=== PATIENT | male | born 1985 | race Caucasian/White ===

== ENCOUNTER 2017-12-04 08:47 | Emergency (ER) | payer BC ==
[2017-12-04 09:14] VITALS: BP 158/99
--- NOTE | 2017-12-04 09:26 | UC ---
Cardiac HPI - HPI Summary HPI Summary: 2 weeks of coughing, with increase in violent cough 3 days ago. Pain in the left chest since then, increased with deep inspiration. Feeling much worse today , with more severe pain. Took ibuprofen 400mg 1.5 hours ago and is feeling a bit better. Cardiac risk factors: BP trends high at annual checks, never treated. Does not know cholesterol. FH PGF with [place], but still alive at age 91. Non-smoker, moderately active, walks regularly without chest pain or dyspnea. - History of Current Complaint Chief Complaint: UCChestPain Stated Complaint: CHEST PAINS Time Seen by Provider: 12/04/17 09:14 Hx Obtained From: Patient Onset/Duration: Gradual Onset, Lasting Days - 3 Timing: Constant Initial Severity: Moderate Current Severity: Moderate Pain Intensity: 10 Chest Pain Location: Left Lateral Character: Sharp/Stabbing Aggravating Factor(s): Exertion, Deep Breaths Alleviating Factor(s): Rest, Position Associated Signs & Symptoms: Positive: Chest Pain, Diaphoresis - Risk Factors Pulmonary Embolism Risk Factors: Negative Cardiac Risk Factors: Hypertension Atrial Fibrillation: Hypertension TAD Risk Factors: Negative AMI/ACS Risk Factors: Obesity, Hypertension - not diagnosed, not treated. - Allergy/Home Medications Allergies/Adverse Reactions: Allergies Allergy/AdvReac Type Severity Reaction Status Date / Time cefaclor [From [facility]] Allergy Unknown Unknown Verified 12/04/17 09:04 Reaction Details Home Medications: Home Medications Ibuprofen TAB* [Advil TAB*] 200 mg PO Q6H PRN 12/04/17 [History Confirmed ] PMH/Surg Hx/FS Hx/Imm Hx Previously Healthy: Yes - Overweight Respiratory History: Pneumonia - age 11, with need for chest tube due to pneumothorax. No particular lung issues since then. - Surgical History Surgical History: None - Family History Known Family History: Positive: Cardiac Disease - PGF, living, 90 - Social History Occupation: Employed Full-time - events associate at [employer] Lives: With Family Alcohol Use: Weekly Substance Use Type: None Smoking Status (MU): Never Smoked Tobacco Review of Systems Constitutional: Negative Skin: Negative Eyes: Negative ENT: Negative Respiratory: Shortness Of Breath, Cough Cardiovascular: Chest Pain, Other - BP elevated at MD visits, but has never been on meds nor asked to follow up with repeat readings. Gastrointestinal: Negative Genitourinary: Negative Motor: Negative Neurovascular: Negative Musculoskeletal: Negative Neurological: Negative Psychological: Negative Is Patient Immunocompromised?: No All Other Systems Reviewed And Are Negative: Yes Physical Exam Triage Information Reviewed: Yes Appearance: Ill-Appearing - looks mildly unwell, Pain Distress - at the time of my assessment, appears comfortable, pink, speaks easily. Vital Signs: Initial Vital Signs Temp 98.3 F 12/04/17 09:05 Pulse 115 12/04/17 09:05 Resp 28 12/04/17 09:05 BP 158/99 12/04/17 09:05 Pulse Ox 99 12/04/17 09:05 Vital Signs Reviewed: Yes Eyes: Positive: Conjunctiva Clear ENT: Positive: Pharynx normal, TMs normal Neck: Positive: Supple, Nontender, No Lymphadenopathy Respiratory: Positive: Decreased breath sounds - to the right side, Crackles - on inital exam; cleared with coughing. Cardiovascular: Positive: No Murmur, Tachycardia Abdomen Description: Positive: Nontender, No Organomegaly, Soft Musculoskeletal Exam: Normal Neurological Exam: Normal Neurological: Positive: Alert, Muscle Tone Normal Psychological Exam: Normal Diagnostics - Laboratory Diagnostic Studies Completed/Ordered: Chest xray; my read is poor inspiration with blunting of costophrenic angles, possible small infiltrate. Dr. Lees reads as small left plerual effusion. Re-Evaluation - Re-Evaluation First Eval Re-Evaluation Time: 10:40 Change: Improved - splinting, but less pain, air entry good, crackles not heard. HR by MY 100 - Assessment/Plan Course Of Treatment: suspected early pneumonia--treated with zithromax and cough suppressant. - Differential Diagnoses - Chest Pain Differential Diagnosis/HQI/PQRI: ACS, Chest Wall, Lower Respiratory Infection - Clinical Impression Provider Diagnoses: left chest wall pain secondary to cough, likely early pneumonia. Discharge - Discharge Plan Condition: Stable Disposition: HOME Prescriptions: Azithromyxin KELLIE (NF) [Z-Kellie (Zithromax) 250 mg tabs #6] 2 tab PO .TODAY, THEN 1 DAILY #6 tab Benzonatate CAP* [Tessalon 100 MG CAP*] 100 mg PO TID PRN #30 cap PRN Reason: Cough Patient Education Materials: Community Acquired Pneumonia (ED), Chest Wall Pain (ED) Forms: *Work Release Additional Instructions: Begin azithromycin for treatment of suspected early pneumonia. Suppress cough with use of tessalon perles, and you could additionally use a long actinv over the counter suppressant such as delsym. For chest wall pain, increase your ibuprofen to 600mg up to 4 times daily, taking it with food. Stop if you develop nausea or stomach pain. Off work for 2 days. Please go to the ER if you have increasing shortness of breath or are not improving. Follow up --please establish care with a primary care doctor to follow up elevated blood pressure.
[2017-12-04] MEDS ORDERED: Acetaminophen TAB* 325 MG PO ONE (09:54)
--- NOTE | 2017-12-04 10:29 | RAD ---
Indication: Hemoptysis. 2 views of the chest including dual energy PA views demonstrates no mediastinal shift. Heart is of normal size and configuration. There may be a small left pleural effusion noted. IMPRESSION: Small left pleural effusion. No definite pneumonia is identified.
== END 2017-12-04 11:01 | disposition home or self-care (01) ==
LOC: UCCORT 08:47
DX: R07.89 Other chest pain (principal); J90 Pleural effusion, not elsewhere classified; I10 Essential (primary) hypertension; Z88.1 Allergy status to other antibiotic agents
CPT/HCPCS: 71046; 93005; 99202; A9270-GY; G0463

== ENCOUNTER 2018-01-29 14:59 | Emergency (ER) | payer BC ==
[2018-01-29 16:02] VITALS: BP 140/92
--- NOTE | 2018-01-29 16:38 | UC ---
Cardiac HPI - HPI Summary HPI Summary: Pt present with right lower lateral chest wall pain. Denies trauma, cough, SOB , urinary symptoms of GI symptoms or disorders. Pt has Hx of pleural effusions, collapsed lung, pneumonia. pain is reproducible and worsens with position - History of Current Complaint Chief Complaint: UCAbdominalPain Stated Complaint: RIGHT SIDE PAIN (1WK) Time Seen by Provider: 01/29/18 15:56 Hx Obtained From: Patient Onset/Duration: Sudden Onset, Lasting Days - 6, Worse Since - osnet Timing: Constant - with position Initial Severity: Mild Current Severity: None Pain Intensity: 0 Chest Pain Location: Right Lateral - RL lower chest/trunk Aggravating Factor(s): Position Alleviating Factor(s): Position Associated Signs & Symptoms: Positive: Negative - Risk Factors Pulmonary Embolism Risk Factors: Negative Cardiac Risk Factors: Negative Atrial Fibrillation: Negative TAD Risk Factors: Negative - Allergy/Home Medications Allergies/Adverse Reactions: Allergies Allergy/AdvReac Type Severity Reaction Status Date / Time cefaclor [From Ceclor] Allergy Unknown Unknown Verified 01/29/18 16:03 Reaction Details Home Medications: Home Medications NK [No Home Medications Reported] 01/29/18 [History Confirmed 01/29/18] PMH/Surg Hx/FS Hx/Imm Hx Respiratory History: Pneumonia, Other - pleural effusions, collapsed lung Other Respiratory History: pleural effusion, collapsed lung, pneumonia - Surgical History Surgical History: Yes Surgery Procedure, Year, and Place: left lung pleural effusion 12/2017 - Family History Known Family History: Positive: Cardiac Disease - PGF, living, 90 - Social History Occupation: Employed Full-time Lives: With Family Alcohol Use: Weekly Alcohol Amount: 12 average Substance Use Type: None Smoking Status (MU): Never Smoked Tobacco Have You Smoked in the Last Year: No Review of Systems Constitutional: Negative Skin: Negative Eyes: Negative ENT: Negative Respiratory: Negative Cardiovascular: Chest Pain Gastrointestinal: Negative Genitourinary: Negative Motor: Negative Neurovascular: Negative Musculoskeletal: Negative Neurological: Negative Psychological: Negative Is Patient Immunocompromised?: No All Other Systems Reviewed And Are Negative: Yes Physical Exam Triage Information Reviewed: Yes Appearance: Well-Appearing Vital Signs: Initial Vital Signs Temp 98.5 F 01/29/18 15:48 Pulse 87 01/29/18 15:48 Resp 20 01/29/18 15:48 BP 140/92 01/29/18 15:48 Pulse Ox 100 01/29/18 15:48 Vital Signs Reviewed: Yes Eye Exam: Normal ENT: Positive: Hearing grossly normal Dental Exam: Normal Neck exam: Normal Respiratory Exam: Normal Cardiovascular: Positive: Other: - reproducible pain right lateral lower chest wall Abdominal Exam: Normal Musculoskeletal Exam: Normal Neurological Exam: Normal Psychological Exam: Normal Skin Exam: Normal Diagnostics - Radiology No standard instances Radiology Interpretation Completed By: Radiologist - 2 views of the chest are reviewed. There is left lower lobe atelectasis noted with likely left pleural effusion. Right lung field is clear. IMPRESSION: Likely left basilar atelectasis with left pleural effusion. This appears to be progressive when compared to previous exam of December 04, 2014. - Differential Diagnoses - Chest Pain Differential Diagnosis/HQI/PQRI: Chest Wall - Clinical Impression Provider Diagnoses: right side truck/chest pain. pleural effusion left side ( asymptomatic) Discharge - Sign-Out/Discharge Documenting (check all that apply): Discharge - Discharge Plan Condition: Stable Disposition: HOME Patient Education Materials: Pleural Effusion (ED), Thoracic Pain (ED) Referrals: Eli Jolley MD [Medical Doctor] - As Soon As Possible No Primary Care Phys,NOPCP [Primary Care Provider] - Additional Instructions: Please keep your upcoming Doctor's appointments as scheduled. Please make sure you keep your PCP and thoracic surgeon appointments. It is important to have continuity of care. Your xray revealed a pleural effusion in one of the lobes of your lung, but you deny any symptoms related to this finding. If you do develop any worsening symptoms please seek care immediately at the closest emergency department. Please use the inspirometer as directed at least three times per day. - Billing Disposition and Condition Condition: STABLE Disposition: HOME
== END 2018-01-29 17:00 | disposition home or self-care (01) ==
LOC: UCCORT 14:59
DX: R07.89 Other chest pain (principal); J90 Pleural effusion, not elsewhere classified; Z88.3 Allergy status to other anti-infective agents
CPT/HCPCS: 71046; 81003; 99211; G0463